=== PATIENT | male | born 1985 | race Caucasian/White ===

== ENCOUNTER 2017-07-02 18:04 | Emergency (ER) | payer OTHER ==
[~2017-07-02] VITALS: Ht 167.6 cm; Wt 91.0 kg
[2017-07-02 18:17] VITALS: BP 110/55
[2017-07-02] MEDS ORDERED: AMLO10TA80 PO (18:17)
== END 2017-07-02 22:53 | disposition left against medical advice (07) ==
LOC: ER 18:04
DX: H92.02 Otalgia, left ear (principal); R09.81 Nasal congestion; J02.9 Acute pharyngitis, unspecified; Z53.21 Procedure and treatment not carried out due to patient leaving prior to being seen by health care provider

== ENCOUNTER 2017-07-04 13:23 | Emergency (ER) | payer OTHER ==
[~2017-07-04] VITALS: Ht 167.6 cm; Wt 93.0 kg
[~2017-07-04 13:23] MED LIST: AMLO10TA80 PO
[2017-07-04 13:51] VITALS: BP 132/73
== END 2017-07-04 17:07 | disposition home or self-care (01) ==
LOC: ER 13:57
DX: J01.90 Acute sinusitis, unspecified (principal); I10 Essential (primary) hypertension
CPT/HCPCS: 99283